=== PATIENT | male | born 1950 | race Hispanic/Latino ===

== ENCOUNTER 2020-03-17 11:18 | Emergency (ER) | payer MEDICARE, OTHER ==
[2020-03-17] MEDS ORDERED: MORPHINE 4 MG/1 ML INJ IV ONE (13:38)
[2020-03-17] MEDS ORDERED: SODIUM CHLORIDE 0.9% 500 ML 500 ML IV ONE (13:38)
[2020-03-17] MEDS ORDERED: ONDANSETRON 4 MG/2 ML INJ IV ONE (13:38)
--- NOTE | 2020-03-17 13:43 | Emergency Department Report ---
ED Abdominal Pain HPI - General Chief Complaint: Abdominal Pain Stated Complaint: CONSTIPATION/ABD PAIN Time Seen by Provider: 03/17/20 13:34 Source: EMS Mode of arrival: Stretcher Limitations: No Limitations - History of Present Illness Initial Comments: Patient is 70 years old male with history of hypertension diabetes. Patient status post back surgery last week at [facility]. Patient presented to the ER via EMS from home complaining of diffuse abdominal pain described as distention with cramping. Patient stated that he did not have a bowel movement for the last 7 days. Patient denied any nausea or vomiting. No fever or chills. Patient also denied any chest pain or shortness of breath. MD Complaint: abdominal pain -: days(s) (5) Location: diffuse Radiation: none Migration to: no migration Severity: moderate Severity scale (0 -10): 10 Quality: fullness Consistency: constant - Related Data Allergies Allergy/AdvReac Type Severity Reaction Status Date / Time No Known Allergies Allergy Verified 03/17/20 13:44 ED Review of Systems ROS: Stated complaint: CONSTIPATION/ABD PAIN Other details as noted in HPI Comment: All other systems reviewed and negative Constitutional: denies: chills, fever Respiratory: denies: cough, shortness of breath, SOB with exertion Cardiovascular: denies: chest pain Gastrointestinal: abdominal pain, constipation. denies: nausea, vomiting, diarrhea, hematemesis, melena, hematochezia Genitourinary: denies: urgency Musculoskeletal: back pain Neurological: denies: headache, weakness, numbness, paresthesias, confusion Psychiatric: anxiety. denies: depression, auditory hallucinations, visual hallucinations, homicidal thoughts, suicidal thoughts ED Past Medical Hx - Past Medical History Previous Medical History?: Yes Hx Hypertension: Yes Hx Diabetes: Yes Hx Psychiatric Treatment: Yes (Anxiety, depression) Additional medical history: sleep apnea - Surgical History Past Surgical History?: Yes Additional Surgical History: Back surgery of L5 and S1 03/11/20 - Social History Smoking Status: Former Smoker Substance Use Type: None ED Physical Exam - General Limitations: No Limitations General appearance: alert, in no apparent distress - Head Head exam: Present: atraumatic, normocephalic, normal inspection - Eye Eye exam: Present: normal appearance, PERRL - ENT ENT exam: Present: normal exam, normal orophraynx, mucous membranes moist - Neck Neck exam: Present: normal inspection, full ROM. Absent: tenderness, meningismus - Respiratory Respiratory exam: Present: normal lung sounds bilaterally - Cardiovascular Cardiovascular Exam: Present: regular rate, normal rhythm, normal heart sounds - GI/Abdominal GI/Abdominal exam: Present: soft, distended, normal bowel sounds. Absent: tenderness, guarding, rebound, rigid, organomegaly, mass, bruit, pulsatile mass, hernia - Extremities Exam Extremities exam: Present: normal inspection - Back Exam Back exam: Absent: tenderness, CVA tenderness (R), CVA tenderness (L) - Neurological Exam Neurological exam: Present: alert, oriented X3, CN II-XII intact - Psychiatric Psychiatric exam: Present: anxious - Skin Skin exam: Present: warm ED Course Vital Signs 03/17/20 03/17/20 03/17/20 13:29 13:50 14:01 Temperature 98.5 F Pulse Rate 98 H Respiratory 42 H 16 Rate Blood Pressure 159/78 Blood Pressure 159/78 [Left] O2 Sat by Pulse 94 93 Oximetry 03/17/20 03/17/20 03/17/20 14:20 15:01 16:01 Temperature Pulse Rate 106 H 110 H Respiratory 16 20 18 Rate Blood Pressure 177/88 188/95 Blood Pressure [Left] O2 Sat by Pulse 97 94 Oximetry 03/17/20 03/17/20 16:19 16:49 Temperature Pulse Rate Respiratory 16 22 Rate Blood Pressure Blood Pressure [Left] O2 Sat by Pulse Oximetry ED Medical Decision Making - Lab Data Result diagrams: 03/17/20 14:24 03/17/20 14:24 - Radiology Data Radiology results: report reviewed - Medical Decision Making Patient is 70 years old male with history of hypertension diabetes. Patient status post back surgery last week at [facility]. Patient presented to the ER via EMS from home complaining of diffuse abdominal pain described as distention with cramping. Patient stated that he did not have a bowel movement for the last 7 days. Patient denied any nausea or vomiting. No fever or chills. Patient also denied any chest pain or shortness of breath. Labs reviewed and is unremarkable. CT abdomen and pelvis with IV contrast is unremarkable. Patient received morphine, Dilaudid and Zofran. Patient stated that he is feeling much better. Patient given prescription for lactulose and Colace and advised to follow-up with his primary doctor in the next 2 to 3 days and to return to the ER if he develop any new symptoms. Critical care attestation.: If time is entered above; I have spent that time in minutes in the direct care of this critically ill patient, excluding procedure time. ED Disposition Clinical Impression: Abdominal pain, Constipation Disposition: DC-01 TO HOME OR SELFCARE Is pt being admited?: No Condition: Stable Instructions: Constipation, Adult, Abdominal Pain, Adult, [id number] Referrals: PRIMARY CARE,MD [Primary Care Provider] - 3-5 Days
[2020-03-17 14:12] LABS: Bilirubin,Urine NEG (Negative); Blood,Urine NEG (Negative); Color,Urine Yellow (Yellow); Mucus,Urine FEW /HPF; Protein,Urine <15 mg/dL mg/dL (Negative)
[2020-03-17 15:04] LABS: Basophils % (Auto) 0.4 % (0.0-1.8); Eosinophils # (Auto) 0.1 K/mm3 (0.0-0.4); Eosinophils % (Auto) 1.4 % (0.0-4.3); Hematocrit 34.5 % (35.5-45.6); Hemoglobin 11.9 gm/dl (11.8-15.2); Lymphocytes # (Auto) 1.1 K/mm3 (1.2-5.4); Lymphocytes % (Auto) 16.2 % (13.4-35.0); Mean Corpuscular HGB Conc 34 % (32-34); Mean Corpuscular Volume 85 fl (84-94); Monocytes # (Auto) 0.9 K/mm3 (0.0-0.8); Monocytes % (Auto) 13.5 % (0.0-7.3); Platelet Count 173 K/mm3 (140-440); Red Blood Count 4.06 M/mm3 (3.65-5.03)
[2020-03-17] MEDS ORDERED: HYDROmorphone 1 MG/1 ML INJ IV ONE (15:54)
[2020-03-17 16:36] LABS: Alanine Aminotransferase 50 units/L (7-56); Albumin 3.2 g/dL (3.9-5); Bilirubin,Direct 0.4 mg/dL (0-0.2); Blood Urea Nitrogen 10 mg/dL (9-20); Calcium 8.7 mg/dL (8.4-10.2); Hemolysis Index 11
[2020-03-17 16:38] LABS: BUN/Creatinine Ratio 14
[2020-03-17 16:45] VITALS: BP 188/95
[2020-03-17] MEDS ORDERED: POTASSIUM CHLORIDE 10 MEQ 10 MEQ/100 ML BAG IV SCH (17:00)
[2020-03-17] MEDS ORDERED: SODIUM CHLORIDE 0.9% 1000 ML 1,000 ML ONE (17:56)
--- NOTE | 2020-03-17 18:57 | Cat Scan Report ---
CT ABDOMEN AND PELVIS WITH CONTRAST INDICATION / CLINICAL INFORMATION: Pain TECHNIQUE: Axial CT images were obtained through the abdomen and pelvis after IV contrast. All CT sc ans at this location are performed using CT dose reduction for ALARA by means of automated exposure c ontrol. COMPARISON: None available. FINDINGS: LOWER CHEST: Unremarkable LIVER: Unremarkable GALLBLADDER/BILIARY TREE: Cholecystectomy. PANCREAS: There is diffuse atrophy. No acute abnormality is identified. SPLEEN: Unremarkable ADRENALS: Unremarkable KIDNEYS / URETER: Bilateral renal cysts. No hydronephrosis. URINARY BLADDER: Unremarkable REPRODUCTIVE ORGANS: Prostate is mildly enlarged. STOMACH / SMALL BOWEL: Stomach and small bowel are normal in caliber. No evidence of bowel inflammati on. COLON: The colon is unremarkable. The appendix is normal in caliber. LYMPH NODES: No significant adenopathy. VASCULATURE: Moderate atherosclerotic calcification without acute abnormality. OTHER: No free air, free fluid, or focal fluid collection is identified. Fat-containing left inguinal hernia. SKELETAL SYSTEM: Degenerative and postoperative changes of the lumbar spine. No acute osseous finding s. IMPRESSION: 1. No acute process of the abdomen or pelvis. 2. Chronic, incidental findings as above. Signer Name: Sarbjit Pena MD Signed: 03/17/2020 6:53 PM Workstation Name: [email or web address]
== END 2020-03-17 19:39 | disposition home or self-care (01) ==
LOC: ED 11:18
DX: K57.00 Diverticulitis of small intestine with perforation and abscess without bleeding (principal); R10.9 Unspecified abdominal pain; I10 Essential (primary) hypertension; E11.9 Type 2 diabetes mellitus without complications; F41.9 Anxiety disorder, unspecified; F32.9 Major depressive disorder, single episode, unspecified; Z87.891 Personal history of nicotine dependence; Z98.890 Other specified postprocedural states
CPT/HCPCS: 36415; 74177; 80048; 80076; 81001; 83690; 85025; 96361; 96374; 96375; 99285; J1170; J2270; J2405; J3480; J7030; J7040; Q9967